=== PATIENT | female | born 1940 | race American Indian/Alaskan Native ===

== ENCOUNTER 2016-12-24 10:48 | Inpatient (IN) | payer MEDICARE ==
[2016-12-24] MEDS ORDERED: NACL 0.9% 1000 ML IV ONE ×2 (13:02→14:37)
--- NOTE | 2016-12-24 13:39 | Emergency Department Report ---
HPI - General Chief Complaint: Extremity Injury, Lower Time Seen by Provider: 12/24/16 12:59 - HPI HPI: Chief complaint: Right ankle injury HPI: Patient is a 76-year-old female with a history of insulin-dependent diabetes, elevated cholesterol, hypertension states that she twisted her ankle walking in her home. Patient states she takes 45 units of Lantus twice a day and has not had her dose this morning he can she did not eat breakfast. Mode of arrival: [EMS] Source: [Patient] Began: Occurred yesterday morning Duration: Continuous Context: Per EMS patient had obvious deformity to her right ankle. Quality: Dull and throbbing Severity: 4 out of 10 Improved with: Holding still and splinting Worsened with: Movement Associated signs and symptoms: Patient unable to bear any weight on that right ankle. Swelling and deformity. ED Past Medical Hx - Past Medical History Hx Hypertension: Yes Hx Diabetes: Yes - Social History Smoking Status: Former Smoker Substance Use Type: None - Medications Home Medications: Home Medications Medication Instructions Recorded Confirmed Last Taken Type Acetaminophen/Diphenhydramine 500 each PO Q6HR 08/07/15 08/09/15 08/09/15 History [Tylenol Pm Ex-Strength Caplet] Aspirin [Adult Low Dose Aspirin EC] 81 mg PO QDAY 08/07/15 08/09/15 08/09/15 History Atorvastatin Calcium [Lipitor] 40 mg PO QHS 08/07/15 08/09/15 08/09/15 History Carvedilol [Coreg] 25 mg PO BID 08/07/15 08/09/15 08/09/15 History Furosemide [Lasix TAB] 20 mg PO QDAY 08/07/15 08/09/15 08/09/15 History amLODIPine [Norvasc] 10 mg PO DAILY 08/07/15 08/09/15 08/09/15 History glipiZIDE [Glucotrol] 10 mg PO BID 08/07/15 08/09/15 08/09/15 History Benzonatate [Tessalon Perles] 100 mg PO Q8HR #30 capsule 08/08/15 08/09/1508/09 Rx Levofloxacin [Levaquin TAB] 750 mg PO QDAY #10 tablet 08/08/15 08/09/15 Rx Insulin NPH Hum/Reg Insulin Hm 45 units BID 08/10/15 08/10/15 3 Days Ago History [HumuLIN 70-30 Vial] ED Review of Systems ROS: Stated complaint: RT ANKLE INJURY Other details as noted in HPI ROS Constitutional: No fever ENT: No uri symptoms Cardiovascular: No chest pain Respiratory: No sob or cough GI: No nausea vomiting or diarrhea : No dysuria frequency or urgency, Skin: No rash Neuro: No focal weakness or numbness Psych: No depression Karlo/lymph: edema Physical Exam - Physical Exam Vital Signs: Vital Signs 12/24/16 12:03 Temperature 99 F Pulse Rate 124 H Respiratory 18 Rate Blood Pressure 136/68 [Right] O2 Sat by Pulse 97 Oximetry Physical Exam: GENERAL: The patient is well-developed well-nourished . HEENT: Normocephalic. Atraumatic. Extraocular motions are intact. Patient has dry mucous membranes. NECK: Supple. No meningitic signs are noted. There is no adenopathy noted. CHEST/LUNGS: Clear to auscultation. There is no respiratory distress noted. HEART/CARDIOVASCULAR: Regular. There is no tachycardia. There is no gallop rub or murmur. ABDOMEN: Abdomen is soft, nontender. Patient has normal bowel sounds. There is no abdominal distention. SKIN: There is no rash. There is 1+ bilateral pedal edema. There is no diaphoresis. NEURO: The patient is awake, alert, and oriented. The patient is cooperative. The patient has no focal neurologic deficits. The patient has normal speech. MUSCULOSKELETAL: Right ankle splinted by EMS. There is no limitation range of motion. ED Course Vital Signs 12/24/16 12:03 Temperature 99 F Pulse Rate 124 H Respiratory 18 Rate Blood Pressure 136/68 [Right] O2 Sat by Pulse 97 Oximetry - Reevaluation(s) Reevaluation #1: 12/24/16 13:41 Patient's Accu-Chek was greater than 500 therefore a liter of normal saline was begun. Patient will have a splint placed to her right ankle. 12/24/16 14:[address] Tracy who will consult on the patient's fractured ankle. ED Medical Decision Making - Lab Data Result diagrams: 12/24/16 13:22 12/24/16 13:22 Laboratory Tests 12/24/16 12/24/16 12/24/16 13:22 13:22 13:40 VBG pH 7.317 L Calcium 9.4 Urine Ketones 80 Urine Blood Mod Ur Leukocyte Esterase Tr Urine WBC (Auto) 14.0 H Urine RBC (Auto) 7.0 U Epithel Cells (Auto) 1.0 Ketones 74.4 H - EKG Data -: EKG Interpreted by Me EKG shows normal: sinus rhythm Rate: tachycardia (119) - EKG Data When compared to previous EKG there are: previous EKG unavailable Interpretation: nonspecific ST-T wave mone, other (sinus tachycardia) - Radiology Data interpreted by me: Right ankle x-ray shows malleolar ankle fracture with minimal displacement. Unstable ankle mortise. Critical care attestation.: If time is entered above; I have spent that time in minutes in the direct care of this critically ill patient, excluding procedure time. ED Disposition Clinical Impression: Bimalleolar fracture of right ankle Qualifiers: Encounter type: initial encounter Fracture type: closed Qualified Code(s): S82.841A - Displaced bimalleolar fracture of right lower leg, initial encounter for closed fracture DKA (diabetic ketoacidoses) Qualifiers: Diabetes mellitus complication detail: without coma Disposition: OP ADMITTED IP TO THIS HOSP Is pt being admited?: Yes Does the pt Need Aspirin: Yes Condition: Stable Instructions: Diabetic Ketoacidosis (ED) Referrals: PRIMARY CARE, [Primary Care Provider] - 3-5 Days Time of Disposition: 14:23 (admit to the hospitalist)
[2016-12-24 13:49] LABS: Basophils % (Auto) 0.5 % (0.0-1.8); Eosinophils % (Auto) 0.1 % (0.0-4.3); Hemoglobin 11.8 gm/dl (10.1-14.3); Mean Corpuscular HGB Conc 32 % (30-34); Mean Corpuscular Hemoglobin 30 pg (28-32); Mean Corpuscular Volume 94 fl (79-97); Platelet Count 362 K/mm3 (140-440); Red Blood Count 3.95 M/mm3 (3.65-5.03); Red Cell Distribution Width 14.2 % (13.2-15.2); White Blood Count 11.1 K/mm3 (4.5-11.0)
[2016-12-24 13:50] LABS: Bilirubin,Urine NEG (Negative); Blood,Urine MOD (Negative); Ketones,Urine 80 mg/dL (Negative); Leukocyte Esterase,Urine TR (Negative); Mucus,Urine FEW /HPF; Nitrite,Urine NEG (Negative); Urobilinogen,Urine < 2.0 mg/dL (<2.0)
[2016-12-24 13:55] LABS: BUN/Creatinine Ratio 13.63; Calcium 9.4 mg/dL (8.4-10.2); Potassium 4.6 mmol/L (3.6-5.0)
--- NOTE | 2016-12-24 14:04 | XRay Report ---
PORTABLE CHEST INDICATION: Shortness of breath. COMPARISON: 08/07/2015 FINDINGS: Portable, frontal chest radiograph demonstrates interval clearing of basilar atelectasis. Slight right midlung zone scarring or faint calcifications appear stable. No pleural effusions or CHF. Normal cardiomediastinal silhouette. Aortic knob calcifications. EKG leads. Stable bones. CONCLUSION: No acute disease in the chest, as described. Thank you for the opportunity to participate in this patient's care.
--- NOTE | 2016-12-24 14:12 | XRay Report ---
RIGHT ANKLE RADIOGRAPHS INDICATION: Right ankle pain, swelling. COMPARISON: None similar. FINDINGS: AP and lateral right ankle radiographs demonstrate disruption of ankle mortise with distal tibia subluxed medially by approximately 2.4 cm, relative to the talus. Horizontal medial malleolus fracture displaced by approximately 1.3 cm noted, though the fractured 1.6 cm medial malleolus fragment positioned appropriately medial to the talus. Talar tilt noted. An oblique distal fibular fracture with cortical offset of approximately 1.3 cm seen. Mild overlying soft tissue swelling laterally and anteriorly noted. Approximately 8 mm faint ossification at the ankle joint anteriorly also seen on the lateral view. Small dorsal and plantar calcaneal spurs. Slight dorsal midfoot spurring. CONCLUSION: Unstable right ankle fractures involving the medial malleolus and the distal fibula with disruption of the ankle mortise, as detailed above. Thank you for the opportunity to participate in this patient's care.
[2016-12-24 14:15] LABS: B-Hydroxybutyrate 74.4 mg/dL (0.2-2.8)
[2016-12-24] MEDS ORDERED: ASPIRIN PO ONE (14:23)
[2016-12-24 15:15] LABS: Magnesium 1.7 mg/dL (1.7-2.3); Phosphorous 2.4 mg/dL (2.5-4.5)
--- NOTE | 2016-12-24 15:37 | Admit Criteria Form ---
Admission Criteria Documentation: DIABETES Clinical Indications for Admission to Inpatient Care (Place 'X' for any and all applicable criteria): Admission is indicated by presence of ALL (if I & II) or ANY ONE (if III or IV) of the following (1)(2)(3)(4): [X ]I. Diabetes is uncontrolled as indicated by ANY ONE of the following: [X ]a) Diabetic ketoacidosis as indicated by ALL of the following (8): [X ]i) Hyperglycemia (eg, plasma glucose greater than 200 mg /dL (11.1 mmol/L)) [X ]ii) Acidosis (eg, arterial pH less than 7.30, serum bicarbonate level less than 15 mEq/L (mmol/L)) [X ]iii) Moderate ketonuria or ketonemia [ ]b) Hyperglycemic hyperosmolar state as indicated by ALL of the following(9)(10): [ ]i) Neurologic dysfunction (eg, stupor, coma, hemiparesis , seizure)(13) [ ]ii) Plasma glucose greater than 600 mg/dL (33.3 mmol/L) [ ]iii) Serum osmolality greater than 320 mOsm/kg (mmol/kg) [ ]c) Severe signs or symptoms secondary to hyperglycemia indicated by ANY ONE of the following: [ ]i) Altered mental status(10) [ ]ii) Significant hypovolemia or dehydration [ ]iii) Intractable nausea or vomiting [ ]iv) Unexplained fever or severe infection [ ]v) Severe electrolyte abnormality (eg, hypokalemia, hyperkalemia, hypernatremia) [X ]II. Management at other levels of care (Also use Diabetes: Observation Care as appropriate) is not feasible because of ANY ONE of the following: [X ]a) Condition was not adequately corrected with treatment at other levels of care. [ ]b) Treatment at other levels of care is not appropriate because of condition severity (eg, hyperosmolar coma). [ ]III. Contraindications and/or Inappropriate clinical situations for Observational Care in patients with Diabetes, when ANY ONE of the following is required: [ ]a) Patient require specific diagnostic workup or therapeutic intervention 22 [ ]b) Patient with abnormal vital signs or altered mental status 23 [X ]IV. General contraindications and/or Inappropriate clinical situations for Observational Care in patients with Diabetes, when ANY ONE of the following is required: [X ]a) Prediction of prolongation of LOS based on ANY ONE of the following may be considered as a contraindication for observational care 2, 3, 4, 5, 6, 7, 8, 9, 10, 11 [ X]i) Age > 65 yrs. [ ]ii) Patient arriving by ambulance [ ]iii) Patient with high acuity [ ]iv) Patient requiring vital sign monitoring [ ]v) Patient on IV medication [ ]b) Systolic blood pressures 180mmHg 3,12 [ ]c) Patient with altered mental status including delirium and other alteration of consciousness, (3) [ ]d) Patient whose discharge disposition will be to a assisted home or rehabilitation home should not be managed in Emergency Department Observation Unit. CMS rule requires 3 days hospital stay before such placement.3,13 [ ]e) Patient with failure to thrive due to broad array of etiologies 3,16,17 [ ]f) Inability to ambulate 3,14 Extended stay beyond goal length of stay may be needed for(3)(20): [ ]a) Treatment of precipitating causes [ ]b) Development of hypoglycemia [ ]c) Complications of treatment [ ]d) Complications of decompensated diabetes (eg, acute gastric dilatation, persistent metabolic or neurologic derangement) [ ]e) Active Comorbidities [ ]f) Older patients( 65 years or older) The original [facility] content created by [employer] has been revised. The portions of the content which have been revised are identified through the use of italic text or in bold,and [facility] has neither reviewed nor approved the modified material. All other unmodified content is copyright [facility]. Please see references footnoted in the original [facility] edition 2016 Admission Criteria Met: Yes
[2016-12-24 15:43] LABS: Anion Gap 32 mmol/L; Blood Urea Nitrogen 14 mg/dL (7-17); Carbon Dioxide 17 mmol/L (22-30); Chloride 90.4 mmol/L (98-107); Glucose 433 mg/dL (65-100); Potassium 3.9 mmol/L (3.6-5.0); Sodium 135 mmol/L (137-145)
[2016-12-24] MEDS: NovoLIN R 100 UNITS in NACL 0.9% 99 ML IV SCH (15:47)
[2016-12-24 16:47] LABS: Anion Gap 26 mmol/L; BUN/Creatinine Ratio 15.55; Blood Urea Nitrogen 14 mg/dL (7-17); Calcium 8.5 mg/dL (8.4-10.2); Carbon Dioxide 19 mmol/L (22-30); Chloride 96.5 mmol/L (98-107); Glucose 287 mg/dL (65-100); Potassium 3.5 mmol/L (3.6-5.0); Sodium 138 mmol/L (137-145)
[2016-12-24] MEDS ORDERED: D5/0.45NS 1,000 ML IV SCH (18:00)
[2016-12-24 18:45] LABS: Anion Gap 22 mmol/L; BUN/Creatinine Ratio 14.44; Blood Urea Nitrogen 13 mg/dL (7-17); Calcium 8.6 mg/dL (8.4-10.2); Carbon Dioxide 22 mmol/L (22-30); Chloride 98.7 mmol/L (98-107); Glucose 203 mg/dL (65-100); Potassium 3.5 mmol/L (3.6-5.0); Sodium 139 mmol/L (137-145)
[2016-12-24 20:48] LABS: Anion Gap 23 mmol/L; Blood Urea Nitrogen 12 mg/dL (7-17); Carbon Dioxide 22 mmol/L (22-30); Chloride 98.3 mmol/L (98-107); Glucose 203 mg/dL (65-100); Potassium 3.5 mmol/L (3.6-5.0); Sodium 140 mmol/L (137-145)
--- NOTE | 2016-12-24 22:39 | Event Note ---
Date: 12/24/16 See H/p in reports Bimalleolar fracture DKA HTN HLD
[2016-12-24] MEDS ORDERED: MILK OF MAGNESIA PO PRN (22:41)
[2016-12-24] MEDS ORDERED: DILAUDID IV PRN (22:41)
[2016-12-24] MEDS ORDERED: ZOFRAN IV PRN (22:41)
[2016-12-24] MEDS ORDERED: AMBIEN PO PRN (22:41)
[2016-12-24] MEDS ORDERED: DULCOLAX PR PRN (22:41)
[2016-12-24 22:46] LABS: Anion Gap 23 mmol/L; BUN/Creatinine Ratio 13.75; Blood Urea Nitrogen 11 mg/dL (7-17); Calcium 8.5 mg/dL (8.4-10.2); Carbon Dioxide 20 mmol/L (22-30); Chloride 96.1 mmol/L (98-107); Glucose 232 mg/dL (65-100); Potassium 3.3 mmol/L (3.6-5.0); Sodium 136 mmol/L (137-145)
[2016-12-25] MEDS: COREG PO SCH ×3 (00:21→21:45)
[2016-12-25] MEDS: NOVOLOG SUB-Q SCH ×6 (00:22→23:53)
[2016-12-25] MEDS ORDERED: D5W/0.45% NACL/KCL 20 MEQ 20 MEQ/1,000 ML BAG IV ONE (01:59)
[2016-12-25] MEDS ORDERED: D5W/0.45% NACL/KCL 20 MEQ 20 MEQ/1,000 ML BAG IV SCH (03:00)
[2016-12-25] MEDS: NovoLIN R 100 UNITS in NACL 0.9% 99 ML IV SCH (05:20)
[2016-12-25] MEDS: TYLENOL PO PRN ×2 (06:31→23:50)
[2016-12-25 07:32] LABS: BUN/Creatinine Ratio 10.9; Calcium 8.3 mg/dL (8.4-10.2); Chloride 102.7 mmol/L (98-107); Potassium 3.7 mmol/L (3.6-5.0)
[2016-12-25] MEDS ORDERED: NACL 0.9% 1000 ML 1,000 ML ONE (08:52)
[2016-12-25] MEDS ORDERED: NACL 0.9% 1000 ML 2,000 ML IV ONE (09:17)
[2016-12-25] MEDS: NORVASC PO SCH (10:02)
[2016-12-25] MEDS: LASIX PO SCH (10:02)
--- NOTE | 2016-12-25 10:06 | History and Physical Report ---
CHIEF COMPLAINT: Right ankle injury and right ankle pain since yesterday. HISTORY OF PRESENT ILLNESS: A 76-year-old female with history of insulin-dependent diabetes, hyperlipidemia, hypertension, twisted her ankle yesterday at her home and since then she has been having severe pain in the right ankle. Unable to walk. Seeks medical attention after 16 hours. Also, stopped taking insulin yesterday. Did not take her morning dose because she did not eat breakfast. Pain is about 10 on a scale of 1-10. Twisted her ankle and resulted in severe pain and immobility. No shortness of breath. No chest pain. No wheezing. PAST MEDICAL HISTORY: Significant for hypertension, diabetes, hyperlipidemia. CURRENT MEDICATIONS: Glipizide 10 mg p.o. b.i.d., amlodipine 10 mg p.o. daily, insulin 70/30, 45 units twice a day, Lasix 20 mg p.o. once a day, Coreg 25 mg twice a day, atorvastatin 40 mg p.o. at bedtime, aspirin 81 mg p.o. daily. PAST SURGICAL HISTORY: None. SOCIAL HISTORY: Former smoker, does not smoke now. Lives with family. FAMILY HISTORY: Hypertension. REVIEW OF SYSTEMS: CONSTITUTIONAL: No fever. No weight loss, weight gain. HEENT: No sore throat, no postnasal drip. CARDIOVASCULAR AND RESPIRATORY: No shortness of breath, no chest pain, no palpitation, no cough, no sputum. GASTROINTESTINAL: No nausea, no vomiting, no diarrhea. GENITOURINARY: No dysuria, no flank pain. SKIN: No rashes. CENTRAL NERVOUS SYSTEM: No syncope, no seizures. MUSCULOSKELETAL: Has severe right ankle pain, 10/10, unable to walk. HEMATOLOGIC AND LYMPHATIC: No bruising or edema. PSYCHIATRIC: No depression, no suicidal ideation. A 14-point review of system was done. PHYSICAL EXAMINATION: GENERAL: Elderly female lying in bed, in slight distress because of the pain. VITAL SIGNS: Temperature is 99, pulse is 124, respiratory rate is 18, blood pressure is . HEENT: Unremarkable. Pupils equal and reactive. NECK: Supple, no lymphadenopathy, no thyromegaly. LUNGS: Clear to auscultation and percussion. Good air entry. CARDIOVASCULAR: S1, S2 heard. No gallop, no murmur, no rub. Apical impulse in left fifth intercostal space and midclavicular line. ABDOMEN: Soft and benign. No hepatosplenomegaly. No guarding, no rigidity. Hernial orifices are normal. EXTREMITIES: Right ankle swollen, 0 range of motion in the ankle. Right ankle deformed. CENTRAL NERVOUS SYSTEM: Alert and oriented x 4, nonfocal exam. SKIN: Normal. IMAGING STUDIES: X-ray of the right ankle shows unstable right ankle fractures involving the medial malleolus and the distal fibula with disruption of the ankle mortise, consistent with bimalleolar fracture, soft tissue swelling in the right ankle. Chest x-ray, no acute process. LABORATORY DATA: White count is 11,100, H and H is 11.8 and 37.0, platelet count is 362,000. Sodium is 136, potassium is 3.3, BUN and creatinine is 11 and 0.8, glucose is 232, repeat is 248, 211, 156, and 147. Ketones are positive. The initial glucose was 546, BUN and creatinine was 15 and 1.1. Ketones were positive. Ketones were 74.4. PH on venous blood gas was . ASSESSMENT AND PLAN: 1. Diabetic ketoacidosis, mild to moderate. The patient initiated on insulin drip and DKA protocol. In view of surgery, DKA protocol had to be initiated. 2. Right ankle fracture. The patient will be taken to surgery tomorrow, which is 12/25/2016, Dr. Tracy consulted. 3. Pain management. Dilaudid 0.5-1 mg q. 3 p.r.n. 4. Insulin-dependent diabetes. The patient does not need any oral hypoglycemics right now or even at discharge. It is superflow to give oral hypoglycemics when she is getting insulin. The patient is getting insulin 70/30, 45 units twice a day. We will discontinue the oral hypoglycemics. The patient also to be counseled. 5. Hypertension. Continue amlodipine 10 mg daily and Coreg 25 mg twice a day. 6. Hyperlipidemia. Continue atorvastatin 40 mg p.o. daily. 7. Deep venous thrombosis prophylaxis, Lovenox 40 mg subcutaneous daily. CRITICAL CARE STATEMENT: The high probability of a clinically significant sudden or deterioration of the cardiopulmonary systems and endocrine system required my full and direct attention, intervention, and personal management. The aggregate critical care time was 40 minutes. The time is in addition to time spent performing reported procedures, but includes the following: Data review and interpretation, patient assessment and monitoring of vital signs, documentation, medication orders, and management. JOB# [id number] KOFI/DANN
--- NOTE | 2016-12-25 15:04 | Consultation ---
History of Present Illness - HPI Consult date: 12/25/16 Consult reason: fracture History of present illness: 76-year-old, fell down and twisted the ankle with injury. Unable to walk and was seen in the ER. Admitted with diagnosis of bimalleolar fracture. Past History Past Medical History: diabetes, hypertension Medications and Allergies Allergies Allergy/AdvReac Type Severity Reaction Status Date / Time shellfish derived Allergy Anaphylaxis Verified 08/07/15 23:19 Sulfa (Sulfonamide Allergy Anaphylaxis Verified 08/07/15 23:19 Antibiotics) Home Medications Medication Instructions Recorded Confirmed Last Taken Type Aspirin [Adult Low Dose Aspirin EC] 81 mg PO QDAY 08/07/15 12/24/16 08/09/15 History Atorvastatin Calcium [Lipitor] 40 mg PO QHS 08/07/15 12/24/16 08/09/15 History Carvedilol [Coreg] 25 mg PO BID 08/07/15 12/24/16 08/09/15 History Furosemide [Lasix TAB] 20 mg PO QDAY 08/07/15 12/24/16 08/09/15 History amLODIPine [Norvasc] 10 mg PO DAILY 08/07/15 12/24/16 08/09/15 History glipiZIDE [Glucotrol] 10 mg PO BID 08/07/15 12/24/16 08/09/15 History Insulin NPH Hum/Reg Insulin Hm 45 units BID 08/10/15 12/24/16 3 Days Ago History [HumuLIN 70-30 Vial] Active Meds: Active Medications Acetaminophen (Tylenol) 650 mg PO Q4H PRN PRN Reason: Pain MILD(1-3)/Fever >100.5/HAMMER Last Admin: 12/25/16 06:31 Dose: 650 mg Amlodipine Besylate (Norvasc) 10 mg PO DAILY [facility] Last Admin: 12/25/16 10:02 Dose: Not Given Aspirin (Halfprin Ec) 81 mg PO QDAY BELA Atorvastatin Calcium (Lipitor) 40 mg PO QHS BELA Bisacodyl (Dulcolax) 10 mg MN QDAY PRN PRN Reason: Constipation unrelieved by MOM Carvedilol (Coreg) 25 mg PO BID [facility] Last Admin: 12/25/16 10:02 Dose: Not Given Dextrose (D50w (25gm)) 0 ml IV ONCE PRN PRN Reason: Hypoglycemia Furosemide (Lasix) 20 mg PO QDAY [facility] Last Admin: 12/25/16 10:02 Dose: Not Given Hydromorphone HCl (Dilaudid) 1 mg IV Q3H PRN PRN Reason: Pain , Severe (7-10) Potassium Chloride/Dextrose/Sod Cl (D5w/0.45% Nacl/Kcl 20 Meq) 20 meq in 1,000 mls @ 150 mls/hr IV DIRECT [facility] Last Admin: 12/25/16 03:00 Dose: 150 mls/hr Insulin Aspart (Novolog) 0 units SUB-Q Q6HR BELA PRN Reason: Protocol Last Admin: 12/25/16 12:59 Dose: 3 units Insulin Human Isoph/Insulin Regular (Novolin 70/30) 45 unit SUB-Q BIDDIAB [facility] Last Admin: 12/25/16 09:58 Dose: 45 unit Magnesium Hydroxide (Milk Of Magnesia) 30 ml PO Q4H PRN PRN Reason: Constipation Ondansetron HCl (Zofran) 4 mg IV Q8H PRN PRN Reason: N/V unrelieved by Reglan Zolpidem Tartrate (Ambien) 5 mg PO QHS PRN PRN Reason: Insomnia Review of Systems All systems: negative Physical Examination - Ankle & Foot right Ankle appearance: normal Foot swelling: other (Her right ankle in splint, no neurovascular deficit.) Assessment and Plan - Patient Problems (1) Bimalleolar fracture of right ankle Current Visit: Yes Status: Acute Qualifiers: Encounter type: initial encounter Fracture type: closed Open fracture type: O Fracture healing: F Qualified Code(s): S82.841A - Displaced bimalleolar fracture of right lower leg, initial encounter for closed fracture Plan to address problem: Elevation, control swelling. Will need internal fixation. Procedure, complications expected outcome discussed with. We'll schedule her pending medical status. She agreed with this.
[2016-12-25] MEDS ORDERED: ANCEF/STERILE WATER 2 GM/20 ML IV NR (16:00)
--- NOTE | 2016-12-25 16:03 | Anesthesia Consultation ---
Anesthesia Consult and Med Hx Date of service: 12/26/16 - Airway Anesthetic Teeth Evaluation: Dentures, Partials ROM Head & Neck: Adequate Mental/Hyoid Distance: Adequate Mallampati Class: Class II Intubation Access Assessment: Probably Good - Pre-Operative Health Status ASA Pre-Surgery Classification: ASA3 Proposed Anesthetic Plan: General - Cardiovascular System Hx Hypertension: Yes - Endocrine Hx Insulin Dependent Diabetes: Yes - Additional Comments Anesthesia Medical History Comments: No previous anesthesia complications.
[2016-12-25 16:16] LABS: Anion Gap 20 mmol/L; Blood Urea Nitrogen 14 mg/dL (7-17); Calcium 8.3 mg/dL (8.4-10.2); Carbon Dioxide 22 mmol/L (22-30); Glucose 195 mg/dL (65-100); Potassium 3.4 mmol/L (3.6-5.0); Sodium 140 mmol/L (137-145)
[2016-12-25] MEDS: HALFPRIN EC PO SCH (21:34)
[2016-12-25] MEDS: NACL 0.9% 1000 ML 1,000 ML IV SCH (23:51)
[2016-12-26] MEDS ORDERED: VERSED IV PRN (00:01)
[2016-12-26] MEDS: NOVOLOG SUB-Q SCH ×4 (06:41→22:59)
[2016-12-26] MEDS: LASIX PO SCH (10:00)
[2016-12-26] MEDS: NORVASC PO SCH (10:00)
[2016-12-26] MEDS: HALFPRIN EC PO SCH (10:00)
[2016-12-26] MEDS: COREG PO SCH ×2 (12:27→22:58)
[2016-12-26] MEDS: NACL 0.9% 1000 ML 1,000 ML IV SCH ×2 (12:28→23:08)
[2016-12-26] MEDS ORDERED: ANCEF/STERILE WATER 2 GM/20 ML IV NR (14:00)
[2016-12-26] MEDS ORDERED: DILAUDID IV PRN (14:41)
[2016-12-26] MEDS ORDERED: PEPCID ONE (15:18)
[2016-12-26] MEDS ORDERED: MARCAINE-EPI 0.5%-1:200,000 INFILTRATI ONE (15:19)
[2016-12-26] MEDS ORDERED: DECADRON ONE ×2 (15:19→16:57)
[2016-12-26] MEDS: NEURONTIN ONE ×2 (15:23→23:03)
[2016-12-26] MEDS ORDERED: NEURONTIN PO NR (15:25)
[2016-12-26] MEDS ORDERED: PEPCID PO NR (15:25)
[2016-12-26] MEDS ORDERED: DIPRIVAN 10 MG/ML IV ONE (16:56)
[2016-12-26] MEDS ORDERED: DILAUDID ONE (16:56)
[2016-12-26] MEDS ORDERED: ZOFRAN ONE (16:57)
[2016-12-26] MEDS ORDERED: XYLOCAINE MPF 2% ONE (16:57)
[2016-12-26] MEDS ORDERED: ZEMURON IV ONE (16:57)
[2016-12-26] MEDS ORDERED: NACL 0.9% ONE (17:10)
[2016-12-26] MEDS ORDERED: NACL 0.9% IR ONE (17:30)
[2016-12-26] MEDS ORDERED: NEOSPORIN GU IR ONE (17:30)
[2016-12-26] MEDS ORDERED: ePHEDrine SULFATE ONE (17:50)
[2016-12-26] MEDS ORDERED: NEO SYNEPHRINE ONE (17:52)
--- NOTE | 2016-12-26 18:10 | Procedure Note ---
Date of procedure: 12/26/16 Pre-op diagnosis: Bimalleolar fx right ankle Post-op diagnosis: same Procedure: ORIF right Bimalleolar ankle FX Anesthesia: GETA Surgeon: RAI DOUGLAS Estimated blood loss: minimal Pathology: none Condition: stable Disposition: PACU
--- NOTE | 2016-12-26 18:14 | Post Anesthesia Evaluation ---
- Post Anesthesia Evaluation Patient Participated: Yes Airway Patent: Yes Stable Respiratory Function: Yes Nausea/Vomiting: No Temp > 96.8F: Yes Pain Manageable: Yes Adequeate Hydration: Yes Anesthesia Complications: No
[2016-12-26] MEDS ORDERED: PHENERGAN PR PRN (20:29)
[2016-12-26] MEDS ORDERED: SODIUM CHLORIDE FLUSH SYRINGE 10 ML IV SCH (20:29)
[2016-12-26] MEDS ORDERED: MORPHINE IV PRN (20:29)
[2016-12-26] MEDS: ANCEF/NS 1 GM/50 ML 1 GM/50 ML BAG IV SCH (22:55)
--- NOTE | 2016-12-26 22:56 | Operative Report ---
PREOPERATIVE DIAGNOSIS: Unstable bimalleolar fracture, right ankle. POSTOPERATIVE DIAGNOSIS: Unstable bimalleolar fracture, right ankle. OPERATIVE PROCEDURE: Open reduction and internal fixation, bimalleolar fracture, right ankle, Synthes instrumentation. SURGEON: Marjorie Fuller MD NATURALIST: Pattie Shay CSA. ANESTHESIA: General. BLOOD LOSS: Minimal. TOURNIQUET TIME: 40 minutes. PROCEDURE IN DETAIL: The patient was taken to surgery suite, satisfactory analgesia obtained with general anesthetics. Right lower limb prepped with ChloraPrep, satisfactorily draped. The correct patient, procedure, and surgical sites were confirmed. After exsanguinating, tourniquet inflated to 300 mmHg pressure. Anterior medial incision was made over the medial malleolus, deepened to the thickness of skin and subcutaneous. Fracture was visualized and the periosteum was elevated, and the soft tissue interposed the fracture site was extracted. Fracture was reduced and held in the reduced position using a reduction clamp. Using the 2.4 mm drillbit 2 drill holes were then made from the tip of the malleolus into the metaphysis of the distal tibia and 4.0 cancellous screw size 40 mm length with washers were applied and 2 set screws were used. Screw position was confirmed under fluoroscopy and confirmed that it does not enter into the ankle mortise. Posterolateral incision was made centering over the fracture site of the fibula. Incision was deepened, periosteum was incised and the fracture was visualized with mild comminution. An 8-hole 1/3 tubular plate was prebent, applied posterolaterally over to the fibula, held in place and the plate position confirmed with fluoroscopy. Through the distal fragment, drill holes were then made with 2.04 mm drill bit and 4.0 cancellous screws were applied. Care taken to avoid penetration into the joint space. The remaining screw holes were then completed in a similar fashion and AP and lateral fluoroscopy showing satisfactory reduction with anatomical alignment and application of internal fixation. Ankle mortise appeared intact. Under fluoroscopy, the syndesmosis was then evaluated and appeared stable. Wound was then thoroughly irrigated, closed in layers in the standard fashion using 2-0 Vicryl and tianna. Sterile dressings were applied. Ankle was immobilized in a posterior splint in neutral position, transferred to recovery room in satisfactory condition, tolerated the procedure well and at the completion of procedure, counts were accurate. TOTAL BLOOD LOSS: Minimal. TOTAL TOURNIQUET TIME: Approximately 40 minutes. [facility]# [id number] ADAN/DANN EVANS
[2016-12-26] MEDS: COLACE PO SCH (22:57)
[2016-12-26] MEDS: ASPIRIN PO SCH (22:58)
--- NOTE | 2016-12-27 04:41 | Progress Note ---
Assessment and Plan - Patient Problems (1) DKA (diabetic ketoacidoses) Current Visit: Yes Status: Resolved Qualifiers: Diabetes mellitus type: D Diabetes mellitus complication detail: without coma Plan to address problem: ADA diet, insulin, accu check (2) Bimalleolar fracture of right ankle Current Visit: Yes Status: Acute Qualifiers: Encounter type: initial encounter Fracture type: closed Open fracture type: O Fracture healing: F Qualified Code(s): S82.841A - Displaced bimalleolar fracture of right lower leg, initial encounter for closed fracture Plan to address problem: Ortho consulted, pending surgical intervention (3) COPD (chronic obstructive pulmonary disease) Current Visit: No Status: Chronic Qualifiers: COPD type: C Chronic bronchitis type: C Emphysema type: E Plan to address problem: supplemental oxygen, nebs, supportive care. (4) Hyperlipidemia Current Visit: No Status: Chronic Qualifiers: Hyperlipidemia type: H Plan to address problem: continue current therapy (5) Hypertension Current Visit: No Status: Chronic Qualifiers: Hypertension type: essential hypertension Qualified Code(s): I10 - Essential (primary) hypertension Plan to address problem: Monitor BP q shift, (6) DVT prophylaxis Current Visit: Yes Status: Acute History Interval history: Pt resting in bed, No reported nursing events. Pending surgical intervention today. Pt denies fever, CP,Palpitation, NVD. Hospitalist Physical - Constitutional Vitals: Temp Pulse Resp BP Pulse Ox 97.5 F L 80 18 142/82 99 12/26/16 23:30 12/26/16 23:30 12/26/16 23:30 12/26/16 23:30 12/26/16 23:30 General appearance: Present: no acute distress, obese - EENT Eyes: Present: PERRL ENT: hearing intact - Neck Neck: Present: supple - Respiratory Respiratory effort: normal Respiratory: bilateral: CTA - Cardiovascular Rhythm: regular Heart Sounds: Present: S1 & S2 - Extremities Extremities: no ischemia Peripheral Pulses: within normal limits - Abdominal General gastrointestinal: soft, non-tender, non-distended - Integumentary Integumentary: Present: clear, dry - Psychiatric Psychiatric: appropriate mood/affect, cooperative - Neurologic Neurologic: CNII-XII intact Results - Labs CBC & Chem 7: 12/24/16 13:22 12/25/16 15:41 Labs: Laboratory Last Values WBC 11.1 K/mm3 (4.5-11.0) H 12/24/16 13:22 RBC 3.95 M/mm3 (3.65-5.03) 12/24/16 13:22 Hgb 11.8 gm/dl (10.1-14.3) 12/24/16 13:22 Hct 37.0 % (30.3-42.9) 12/24/16 13:22 MCV 94 fl (79-97) 12/24/16 13:22 MCH 30 pg (28-32) 12/24/16 13:22 MCHC 32 % (30-34) 12/24/16 13:22 RDW 14.2 % (13.2-15.2) 12/24/16 13:22 Plt Count 362 K/mm3 (140-440) 12/24/16 13:22 Lymph % (Auto) 4.4 % (13.4-35.0) L 12/24/16 13:22 [place] % (Auto) 14.1 % (0.0-7.3) H 12/24/16 13:22 Eos % (Auto) 0.1 % (0.0-4.3) 12/24/16 13:22 Baso % (Auto) 0.5 % (0.0-1.8) 12/24/16 13:22 Lymph # 0.5 K/mm3 (1.2-5.4) L 12/24/16 13:22 [place] # 1.6 K/mm3 (0.0-0.8) H 12/24/16 13:22 Eos # 0.0 K/mm3 (0.0-0.4) 12/24/16 13:22 Baso # 0.1 K/mm3 (0.0-0.1) 12/24/16 13:22 Seg Neutrophils % 80.9 % (40.0-70.0) H 12/24/16 13:22 Seg Neutrophils # 9.0 K/mm3 (1.8-7.7) H 12/24/16 13:22 VBG pH 7.317 (7.320-7.420) L 12/24/16 13:22 Sodium 140 mmol/L (137-145) 12/25/16 15:41 Potassium 3.4 mmol/L (3.6-5.0) L 12/25/16 15:41 Chloride 101.0 mmol/L (98-107) 12/25/16 15:41 Carbon Dioxide 22 mmol/L (22-30) 12/25/16 15:41 Anion Gap 20 mmol/L 12/25/16 15:41 BUN 14 mg/dL (7-17) 12/25/16 15:41 Creatinine 1.0 mg/dL (0.7-1.2) 12/25/16 15:41 Estimated GFR > 60 ml/min 12/25/16 15:41 BUN/Creatinine Ratio 14.00 % 12/25/16 15:41 Glucose 195 mg/dL (65-100) H 12/25/16 15:41 POC Glucose 247 (70-105) H 12/26/16 22:54 Calcium 8.3 mg/dL (8.4-10.2) L 12/25/16 15:41 Phosphorus 2.4 mg/dL (2.5-4.5) L 12/24/16 14:44 Magnesium 1.7 mg/dL (1.7-2.3) 12/24/16 14:44 Urine Color Straw (Yellow) 12/24/16 13:40 Urine Turbidity Clear (Clear) 12/24/16 13:40 Urine pH 5.0 (5.0-7.0) 12/24/16 13:40 Ur Specific [place] 1.022 (1.003-1.030) 12/24/16 13:40 Urine Protein 30 mg/dl mg/dL (Negative) 12/24/16 13:40 Urine Glucose (UA) >=500 mg/dL (Negative) 12/24/16 13:40 Urine Ketones 80 mg/dL (Negative) 12/24/16 13:40 Urine Blood Mod (Negative) 12/24/16 13:40 Urine Nitrite Neg (Negative) 12/24/16 13:40 Urine Bilirubin Neg (Negative) 12/24/16 13:40 Urine Urobilinogen < 2.0 mg/dL (<2.0) 12/24/16 13:40 Ur Leukocyte Esterase Tr (Negative) 12/24/16 13:40 Urine WBC (Auto) 14.0 /HPF (0.0-6.0) H 12/24/16 13:40 Urine RBC (Auto) 7.0 /HPF (0.0-6.0) 12/24/16 13:40 U Epithel Cells (Auto) 1.0 /HPF (0-13.0) 12/24/16 13:40 Urine Mucus Few /HPF 12/24/16 13:40 Ketones 74.4 mg/dL (0.2-2.8) H 12/24/16 13:22
[2016-12-27 05:37] LABS: Hematocrit 32.2 % (30.3-42.9); Hemoglobin 10.4 gm/dl (10.1-14.3)
[2016-12-27 05:57] LABS: Anion Gap 20 mmol/L; BUN/Creatinine Ratio 26.25; Blood Urea Nitrogen 21 mg/dL (7-17); Calcium 7.8 mg/dL (8.4-10.2); Carbon Dioxide 21 mmol/L (22-30); Chloride 102.2 mmol/L (98-107); Glucose 416 mg/dL (65-100); Potassium 4.4 mmol/L (3.6-5.0); Sodium 139 mmol/L (137-145)
[2016-12-27] MEDS: ANCEF/NS 1 GM/50 ML 1 GM/50 ML BAG IV SCH (06:20)
--- NOTE | 2016-12-27 07:40 | Progress Note ---
Assessment and Plan alert orientated in NAD toes look good, good capillary refill and motion OOB c PT, May DC as per medicine. Subjective Date of service: 12/27/16 Objective Vital signs: Vital Signs - 12hr 12/26/16 12/26/16 12/26/16 19:45 20:10 20:15 Temperature 98.1 F 98.2 F Pulse Rate 80 Pulse Rate [ 112 H Apical] Pulse Rate [ 80 100 H Left Radial] Respiratory 20 20 20 Rate Respiratory Rate [Right Ankle] Blood Pressure 109/63 Blood Pressure 109/63 124/74 [Left Arm] O2 Sat by Pulse 98 100 100 Oximetry 12/26/16 12/26/16 12/26/16 20:39 20:45 21:15 Temperature 98.6 F 98 F Pulse Rate 85 Pulse Rate [ Apical] Pulse Rate [ 102 H 116 H Left Radial] Respiratory 18 20 Rate Respiratory Rate [Right Ankle] Blood Pressure Blood Pressure 118/70 124/78 [Left Arm] O2 Sat by Pulse 98 98 Oximetry 12/26/16 12/26/16 12/26/16 22:00 22:30 22:58 Temperature 98 F Pulse Rate 81 Pulse Rate [ Apical] Pulse Rate [ 92 H Left Radial] Respiratory 20 Rate Respiratory 22 Rate [Right Ankle] Blood Pressure 142/82 Blood Pressure 116/74 [Left Arm] O2 Sat by Pulse 98 Oximetry 12/26/16 23:30 Temperature 97.5 F L Pulse Rate Pulse Rate [ Apical] Pulse Rate [ 80 Left Radial] Respiratory 18 Rate Respiratory Rate [Right Ankle] Blood Pressure Blood Pressure 142/82 [Left Arm] O2 Sat by Pulse 99 Oximetry - Labs CBC & BMP: 12/27/16 05:24 12/27/16 05:24 Labs: Abnormal lab results 12/26/16 12/26/16 12/26/16 Range/Units 12:42 14:19 18:39 Carbon Dioxide (22-30) mmol/L BUN (7-17) mg/dL Glucose (65-100) mg/dL POC Glucose 151 H 179 H 250 H (70-105) Calcium (8.4-10.2) mg/dL 12/26/16 12/27/16 Range/Units 22:54 05:24 Carbon Dioxide 21 L (22-30) mmol/L BUN 21 H (7-17) mg/dL Glucose 416 H (65-100) mg/dL POC Glucose 247 H (70-105) Calcium 7.8 L (8.4-10.2) mg/dL
[2016-12-27] MEDS: NOVOLOG SUB-Q SCH ×4 (08:32→22:58)
--- NOTE | 2016-12-27 08:52 | XRay Report ---
Right ankle 3 views. Findings: Orthopedic screws are seen transfixing the medial malleolar fracture. An orthopedic side plate and multiple screws are seen transfixing the fractured lateral malleolus. No radiographic signs of complications are seen.
[2016-12-27] MEDS: NORVASC PO SCH (10:08)
[2016-12-27] MEDS: COREG PO SCH ×2 (10:08→22:58)
[2016-12-27] MEDS: THERAGRAN Tab PO SCH (10:08)
[2016-12-27] MEDS: COLACE PO SCH ×2 (10:08→22:57)
[2016-12-27] MEDS: LASIX PO SCH (10:08)
[2016-12-27] MEDS: ASPIRIN PO SCH ×2 (10:08→22:58)
[2016-12-27] MEDS ORDERED: FLUARIX QUAD 2016-2017(36 MOS+) IM ONE (12:00)
--- NOTE | 2016-12-27 16:33 | Progress Note ---
Assessment and Plan - Patient Problems (1) DKA (diabetic ketoacidoses) Current Visit: Yes Status: Resolved Qualifiers: Diabetes mellitus type: D Diabetes mellitus complication detail: without coma Plan to address problem: ADA diet, insulin, accu check (2) Bimalleolar fracture of right ankle Current Visit: Yes Status: Acute Qualifiers: Encounter type: initial encounter Fracture type: closed Open fracture type: O Fracture healing: F Qualified Code(s): S82.841A - Displaced bimalleolar fracture of right lower leg, initial encounter for closed fracture Plan to address problem: Ortho consulted, S/P surgical intervention, Postoperative pain, continue pain control. (3) COPD (chronic obstructive pulmonary disease) Current Visit: No Status: Chronic Qualifiers: COPD type: C Chronic bronchitis type: C Emphysema type: E Plan to address problem: supplemental oxygen, nebs, supportive care. (4) Hyperlipidemia Current Visit: No Status: Chronic Qualifiers: Hyperlipidemia type: H Plan to address problem: continue current therapy (5) Hypertension Current Visit: No Status: Chronic Qualifiers: Hypertension type: essential hypertension Qualified Code(s): I10 - Essential (primary) hypertension Plan to address problem: Monitor BP q shift, (6) DVT prophylaxis Current Visit: Yes Status: Acute History Interval history: Pt resting in bed, No reported nursing events. Pt S/P surgical intervention, Pt complains of pain. Pt denies fever, CP,Palpitation, NVD. Hospitalist Physical - Constitutional Vitals: Temp Pulse Resp BP Pulse Ox 98.1 F 62 18 97/54 94 12/27/16 15:32 12/27/16 15:32 12/27/16 15:32 12/27/16 15:32 12/27/16 15:32 General appearance: Present: no acute distress, obese - EENT Eyes: Present: PERRL, EOM intact ENT: hearing intact - Neck Neck: Present: supple - Respiratory Respiratory effort: normal Respiratory: bilateral: CTA - Cardiovascular Rhythm: regular Heart Sounds: Present: S1 & S2 - Extremities Extremities: no ischemia Extremity abnormal: edema - Abdominal General gastrointestinal: soft, non-tender, non-distended - Integumentary Integumentary: Present: clear, dry - Psychiatric Psychiatric: appropriate mood/affect, cooperative - Neurologic Neurologic: CNII-XII intact Results - Labs CBC & Chem 7: 12/27/16 05:24 03/02/17 05:24 Labs: Laboratory Last Values WBC 11.1 K/mm3 (4.5-11.0) H 12/24/16 13:22 RBC 3.95 M/mm3 (3.65-5.03) 12/24/16 13:22 Hgb 10.4 gm/dl (10.1-14.3) 12/27/16 05:24 Hct 32.2 % (30.3-42.9) 12/27/16 05:24 MCV 94 fl (79-97) 12/24/16 13:22 MCH 30 pg (28-32) 12/24/16 13:22 MCHC 32 % (30-34) 12/24/16 13:22 RDW 14.2 % (13.2-15.2) 12/24/16 13:22 Plt Count 362 K/mm3 (140-440) 12/24/16 13:22 Lymph % (Auto) 4.4 % (13.4-35.0) L 12/24/16 13:22 [place] % (Auto) 14.1 % (0.0-7.3) H 12/24/16 13:22 Eos % (Auto) 0.1 % (0.0-4.3) 12/24/16 13:22 Baso % (Auto) 0.5 % (0.0-1.8) 12/24/16 13:22 Lymph # 0.5 K/mm3 (1.2-5.4) L 12/24/16 13:22 [place] # 1.6 K/mm3 (0.0-0.8) H 12/24/16 13:22 Eos # 0.0 K/mm3 (0.0-0.4) 12/24/16 13:22 Baso # 0.1 K/mm3 (0.0-0.1) 12/24/16 13:22 Seg Neutrophils % 80.9 % (40.0-70.0) H 12/24/16 13:22 Seg Neutrophils # 9.0 K/mm3 (1.8-7.7) H 12/24/16 13:22 VBG pH 7.317 (7.320-7.420) L 12/24/16 13:22 Sodium 139 mmol/L (137-145) 12/27/16 05:24 Potassium 4.4 mmol/L (3.6-5.0) D 12/27/16 05:24 Chloride 102.2 mmol/L (98-107) 12/27/16 05:24 Carbon Dioxide 21 mmol/L (22-30) L 12/27/16 05:24 Anion Gap 20 mmol/L 12/27/16 05:24 BUN 21 mg/dL (7-17) H 12/27/16 05:24 Creatinine 0.8 mg/dL (0.7-1.2) 12/27/16 05:24 Estimated GFR > 60 ml/min 12/27/16 05:24 BUN/Creatinine Ratio 26.25 % 12/27/16 05:24 Glucose 416 mg/dL (65-100) H 12/27/16 05:24 POC Glucose 409 (70-105) H 12/27/16 12:07 Calcium 7.8 mg/dL (8.4-10.2) L 12/27/16 05:24 Phosphorus 2.4 mg/dL (2.5-4.5) L 12/24/16 14:44 Magnesium 1.7 mg/dL (1.7-2.3) 12/24/16 14:44 Urine Color Straw (Yellow) 12/24/16 13:40 Urine Turbidity Clear (Clear) 12/24/16 13:40 Urine pH 5.0 (5.0-7.0) 12/24/16 13:40 Ur Specific [place] 1.022 (1.003-1.030) 12/24/16 13:40 Urine Protein 30 mg/dl mg/dL (Negative) 12/24/16 13:40 Urine Glucose (UA) >=500 mg/dL (Negative) 12/24/16 13:40 Urine Ketones 80 mg/dL (Negative) 12/24/16 13:40 Urine Blood Mod (Negative) 12/24/16 13:40 Urine Nitrite Neg (Negative) 12/24/16 13:40 Urine Bilirubin Neg (Negative) 12/24/16 13:40 Urine Urobilinogen < 2.0 mg/dL (<2.0) 12/24/16 13:40 Ur Leukocyte Esterase Tr (Negative) 12/24/16 13:40 Urine WBC (Auto) 14.0 /HPF (0.0-6.0) H 12/24/16 13:40 Urine RBC (Auto) 7.0 /HPF (0.0-6.0) 12/24/16 13:40 U Epithel Cells (Auto) 1.0 /HPF (0-13.0) 12/24/16 13:40 Urine Mucus Few /HPF 12/24/16 13:40 Ketones 74.4 mg/dL (0.2-2.8) H 12/24/16 13:22
[2016-12-28] MEDS: NOVOLOG SUB-Q SCH ×4 (08:30→22:03)
--- NOTE | 2016-12-28 08:52 | Progress Note ---
Assessment and Plan - Patient Problems (1) Bimalleolar fracture of right ankle Current Visit: Yes Status: Acute Qualifiers: Encounter type: initial encounter Fracture type: closed Open fracture type: O Fracture healing: F Qualified Code(s): S82.841A - Displaced bimalleolar fracture of right lower leg, initial encounter for closed fracture Plan to address problem: Continued elevation, no weightbearing ambulation/walker. Patient may be discharged per medicine with DVT prophylaxis, no weightbearing./ walker. Followup in the office in 2 weeks for removal of splint/tianna, reassessment of wound and application of cast. If she is coming from [facility]SNF , she is to bring with her copies of x-rays of right ankle AP lateral oblique views, then within 48 hours of office visit. Will sign off Subjective Date of service: 12/28/16 Principal diagnosis: Bimalleolar fracture ankle Interval history: Postoperative, no new complaints, Objective Vital signs: Vital Signs - 12hr 12/27/16 12/27/16 12/28/16 21:20 22:58 01:10 Temperature 98.2 F 98.2 F Pulse Rate 92 H Pulse Rate [ 92 H 88 Left Radial] Respiratory 20 20 Rate Blood Pressure 118/59 Blood Pressure 118/59 102/55 [Left Arm] O2 Sat by Pulse 94 96 Oximetry 12/28/16 12/28/16 05:31 07:30 Temperature 97.9 F 98.4 F Pulse Rate Pulse Rate [ 72 77 Left Radial] Respiratory 20 20 Rate Blood Pressure Blood Pressure 108/57 128/75 [Left Arm] O2 Sat by Pulse 98 98 Oximetry - Labs CBC & BMP: 12/27/16 05:24 12/27/16 05:24 Labs: Abnormal lab results 12/27/16 12/27/16 12/27/16 Range/Units 12:07 17:15 21:33 POC Glucose 409 H 364 H 401 H (70-105) 12/28/16 Range/Units 08:25 POC Glucose 122 H (70-105)
[2016-12-28] MEDS: THERAGRAN Tab PO SCH (10:07)
[2016-12-28] MEDS: ASPIRIN PO SCH ×2 (10:07→21:46)
[2016-12-28] MEDS: NORVASC PO SCH (10:07)
[2016-12-28] MEDS: LASIX PO SCH (10:08)
[2016-12-28] MEDS: COLACE PO SCH ×2 (10:08→21:45)
[2016-12-28] MEDS: COREG PO SCH ×2 (10:08→21:48)
--- NOTE | 2016-12-28 11:02 | Discharge Summary ---
Providers - Providers Date of Admission: 12/24/16 22:41 Attending physician: SENDY OSBORN 12/24/16 22:44 Consult to Physician [CONS] Routine Consulting Provider: MAKENNA COLÓN Reason For Exam: Ankle Fracture Place consult to:: Rossana Notified:: office Phone number called:: [phone] Was contact made?: Yes If yes, spoke with:: rachel Time called:: 12:06 12/26/16 20:29 Physical Therapy Evaluation and Treat [CONS] Routine Comment: Reason For Exam: post op ankle fx Weight bearing status?: Nonwt bearing Primary care physician: [employer] Hospitalization Condition: Stable Disposition: STILL A PATIENT - Discharge Diagnoses (1) DKA (diabetic ketoacidoses) Status: Resolved Qualifiers: Diabetes mellitus type: D Diabetes mellitus complication detail: without coma (2) Bimalleolar fracture of right ankle Status: Acute Qualifiers: Encounter type: initial encounter Fracture type: closed Open fracture type: O Fracture healing: F Qualified Code(s): S82.841A - Displaced bimalleolar fracture of right lower leg, initial encounter for closed fracture (3) COPD (chronic obstructive pulmonary disease) Status: Chronic Qualifiers: COPD type: C Chronic bronchitis type: C Emphysema type: E (4) Hyperlipidemia Status: Chronic Qualifiers: Hyperlipidemia type: H (5) Hypertension Status: Chronic Qualifiers: Hypertension type: essential hypertension Qualified Code(s): I10 - Essential (primary) hypertension (6) DVT prophylaxis Status: Acute Exam - Constitutional Vitals: Temp Pulse Resp BP Pulse Ox 98.4 F 81 20 128/75 98 12/28/16 07:30 12/28/16 10:19 12/28/16 07:30 12/28/16 07:30 12/28/16 07:30 Plan Follow up with: ALONDRA OREILLY MD [Primary Care Provider] - 3-5 Days
[2016-12-28] MEDS: TYLENOL PO PRN (21:52)
[2016-12-29] MEDS: COREG PO SCH ×2 (10:06→21:28)
[2016-12-29] MEDS: NORVASC PO SCH (10:07)
[2016-12-29] MEDS: LASIX PO SCH (10:07)
[2016-12-29] MEDS: THERAGRAN Tab PO SCH (10:07)
[2016-12-29] MEDS: ASPIRIN PO SCH ×2 (10:07→21:28)
[2016-12-29] MEDS: TYLENOL PO PRN ×3 (10:15→21:35)
[2016-12-29] MEDS: NOVOLOG SUB-Q SCH ×4 (10:19→22:58)
[2016-12-29] MEDS: COLACE PO SCH ×2 (10:19→22:58)
--- NOTE | 2016-12-29 12:44 | Progress Note ---
Assessment and Plan - Patient Problems (1) DKA (diabetic ketoacidoses) Current Visit: Yes Status: Resolved Qualifiers: Diabetes mellitus type: D Diabetes mellitus complication detail: without coma Plan to address problem: ADA diet, insulin, accu check (2) Bimalleolar fracture of right ankle Current Visit: Yes Status: Acute Qualifiers: Encounter type: initial encounter Fracture type: closed Open fracture type: O Fracture healing: F Qualified Code(s): S82.841A - Displaced bimalleolar fracture of right lower leg, initial encounter for closed fracture Plan to address problem: Ortho consulted, S/P surgical intervention, Postoperative pain, continue pain control. (3) COPD (chronic obstructive pulmonary disease) Current Visit: No Status: Chronic Qualifiers: COPD type: C Chronic bronchitis type: C Emphysema type: E Plan to address problem: supplemental oxygen, nebs, supportive care. (4) Hyperlipidemia Current Visit: No Status: Chronic Qualifiers: Hyperlipidemia type: H Plan to address problem: continue current therapy (5) Hypertension Current Visit: No Status: Chronic Qualifiers: Hypertension type: essential hypertension Qualified Code(s): I10 - Essential (primary) hypertension Plan to address problem: Monitor BP q shift, (6) DVT prophylaxis Current Visit: Yes Status: Acute History Interval history: Pt resting in bed, No reported nursing events. Pt S/P surgical intervention. Pt denies fever, CP,Palpitation, NVD. Pt discharged. Case management consulted. Hospitalist Physical - Constitutional Vitals: Temp Pulse Resp BP Pulse Ox 98.2 F 68 2 L 116/70 99 12/29/16 07:45 12/29/16 10:00 12/29/16 10:15 12/29/16 07:45 12/29/16 10:00 General appearance: Present: no acute distress, obese - EENT Eyes: Present: PERRL, EOM intact ENT: hearing intact - Neck Neck: Present: supple - Respiratory Respiratory effort: normal Respiratory: bilateral: CTA - Cardiovascular Rhythm: regular Heart Sounds: Present: S1 & S2 - Extremities Extremities: no ischemia Peripheral Pulses: within normal limits - Abdominal General gastrointestinal: soft, non-tender, non-distended - Integumentary Integumentary: Present: clear, dry - Psychiatric Psychiatric: appropriate mood/affect, cooperative - Neurologic Neurologic: CNII-XII intact Results - Labs CBC & Chem 7: 12/27/16 05:24 12/27/16 05:24 Labs: Laboratory Last Values WBC 11.1 K/mm3 (4.5-11.0) H 12/24/16 13:22 RBC 3.95 M/mm3 (3.65-5.03) 12/24/16 13:22 Hgb 10.4 gm/dl (10.1-14.3) 12/27/16 05:24 Hct 32.2 % (30.3-42.9) 12/27/16 05:24 MCV 94 fl (79-97) 12/24/16 13:22 MCH 30 pg (28-32) 12/24/16 13:22 MCHC 32 % (30-34) 12/24/16 13:22 RDW 14.2 % (13.2-15.2) 12/24/16 13:22 Plt Count 362 K/mm3 (140-440) 12/24/16 13:22 Lymph % (Auto) 4.4 % (13.4-35.0) L 12/24/16 13:22 [place] % (Auto) 14.1 % (0.0-7.3) H 12/24/16 13:22 Eos % (Auto) 0.1 % (0.0-4.3) 12/24/16 13:22 Baso % (Auto) 0.5 % (0.0-1.8) 12/24/16 13:22 Lymph # 0.5 K/mm3 (1.2-5.4) L 12/24/16 13:22 [place] # 1.6 K/mm3 (0.0-0.8) H 12/24/16 13:22 Eos # 0.0 K/mm3 (0.0-0.4) 12/24/16 13:22 Baso # 0.1 K/mm3 (0.0-0.1) 12/24/16 13:22 Seg Neutrophils % 80.9 % (40.0-70.0) H 12/24/16 13:22 Seg Neutrophils # 9.0 K/mm3 (1.8-7.7) H 12/24/16 13:22 VBG pH 7.317 (7.320-7.420) L 12/24/16 13:22 Sodium 139 mmol/L (137-145) 12/27/16 05:24 Potassium 4.4 mmol/L (3.6-5.0) D 12/27/16 05:24 Chloride 102.2 mmol/L (98-107) 12/27/16 05:24 Carbon Dioxide 21 mmol/L (22-30) L 12/27/16 05:24 Anion Gap 20 mmol/L 12/27/16 05:24 BUN 21 mg/dL (7-17) H 12/27/16 05:24 Creatinine 0.8 mg/dL (0.7-1.2) 12/27/16 05:24 Estimated GFR > 60 ml/min 12/27/16 05:24 BUN/Creatinine Ratio 26.25 % 12/27/16 05:24 Glucose 416 mg/dL (65-100) H 12/27/16 05:24 POC Glucose 335 (70-105) H 12/28/16 21:52 Calcium 7.8 mg/dL (8.4-10.2) L 12/27/16 05:24 Phosphorus 2.4 mg/dL (2.5-4.5) L 12/24/16 14:44 Magnesium 1.7 mg/dL (1.7-2.3) 12/24/16 14:44 Urine Color Straw (Yellow) 12/24/16 13:40 Urine Turbidity Clear (Clear) 12/24/16 13:40 Urine pH 5.0 (5.0-7.0) 12/24/16 13:40 Ur Specific [place] 1.022 (1.003-1.030) 12/24/16 13:40 Urine Protein 30 mg/dl mg/dL (Negative) 12/24/16 13:40 Urine Glucose (UA) >=500 mg/dL (Negative) 12/24/16 13:40 Urine Ketones 80 mg/dL (Negative) 12/24/16 13:40 Urine Blood Mod (Negative) 12/24/16 13:40 Urine Nitrite Neg (Negative) 12/24/16 13:40 Urine Bilirubin Neg (Negative) 12/24/16 13:40 Urine Urobilinogen < 2.0 mg/dL (<2.0) 12/24/16 13:40 Ur Leukocyte Esterase Tr (Negative) 12/24/16 13:40 Urine WBC (Auto) 14.0 /HPF (0.0-6.0) H 12/24/16 13:40 Urine RBC (Auto) 7.0 /HPF (0.0-6.0) 12/24/16 13:40 U Epithel Cells (Auto) 1.0 /HPF (0-13.0) 12/24/16 13:40 Urine Mucus Few /HPF 12/24/16 13:40 Ketones 74.4 mg/dL (0.2-2.8) H 12/24/16 13:22
[2016-12-30] MEDS: PERCOCET 5/325 PO PRN ×2 (08:44→14:14)
[2016-12-30] MEDS: NOVOLOG SUB-Q SCH ×4 (08:46→23:27)
[2016-12-30] MEDS: COREG PO SCH ×2 (09:59→21:28)
[2016-12-30] MEDS: ASPIRIN PO SCH ×2 (09:59→21:27)
[2016-12-30] MEDS: COLACE PO SCH ×3 (09:59→23:28)
[2016-12-30] MEDS: LASIX PO SCH (09:59)
[2016-12-30] MEDS: NORVASC PO SCH (09:59)
[2016-12-30] MEDS: THERAGRAN Tab PO SCH (09:59)
[2016-12-30] MEDS: TYLENOL PO PRN (21:27)
[2016-12-31] MEDS: D50W (25GM) IV PRN (05:31)
[2016-12-31] MEDS: PERCOCET 5/325 PO PRN ×3 (08:14→18:29)
[2016-12-31] MEDS: NOVOLOG SUB-Q SCH ×4 (08:15→22:06)
[2016-12-31] MEDS: ASPIRIN PO SCH ×2 (09:18→22:03)
[2016-12-31] MEDS: THERAGRAN Tab PO SCH (09:18)
[2016-12-31] MEDS: COREG PO SCH ×2 (09:18→22:03)
[2016-12-31] MEDS: NORVASC PO SCH (09:19)
[2016-12-31] MEDS: LASIX PO SCH (09:19)
[2016-12-31] MEDS: COLACE PO SCH ×2 (10:05→22:06)
--- NOTE | 2016-12-31 13:04 | Progress Note ---
Assessment and Plan - Patient Problems (1) DKA (diabetic ketoacidoses) Current Visit: Yes Status: Resolved Qualifiers: Diabetes mellitus type: D Diabetes mellitus complication detail: without coma Plan to address problem: ADA diet, insulin, accu check (2) Bimalleolar fracture of right ankle Current Visit: Yes Status: Acute Qualifiers: Encounter type: initial encounter Fracture type: closed Open fracture type: O Fracture healing: F Qualified Code(s): S82.841A - Displaced bimalleolar fracture of right lower leg, initial encounter for closed fracture Plan to address problem: Ortho consulted, S/P surgical intervention, Postoperative pain, continue pain control. Pt NWB to RLE (3) COPD (chronic obstructive pulmonary disease) Current Visit: No Status: Chronic Qualifiers: COPD type: C Chronic bronchitis type: C Emphysema type: E Plan to address problem: supplemental oxygen, nebs, supportive care. (4) Hyperlipidemia Current Visit: No Status: Chronic Qualifiers: Hyperlipidemia type: H Plan to address problem: continue current therapy (5) Hypertension Current Visit: No Status: Chronic Qualifiers: Hypertension type: essential hypertension Qualified Code(s): I10 - Essential (primary) hypertension Plan to address problem: Monitor BP q shift, (6) DVT prophylaxis Current Visit: Yes Status: Acute History Interval history: Pt resting in bed, No reported nursing events. Pt S/P surgical intervention. Pt denies fever, CP,Palpitation, NVD. Pt discharged. Case management consulted. Hospitalist Physical - Constitutional Vitals: Temp Pulse Resp BP Pulse Ox 98.2 F 95 H 20 129/72 95 12/31/16 09:10 12/31/16 09:18 12/31/16 09:10 12/31/16 09:19 12/31/16 09:10 General appearance: Present: no acute distress, obese - EENT Eyes: Present: PERRL, EOM intact ENT: hearing intact - Neck Neck: Present: supple - Respiratory Respiratory effort: normal Respiratory: bilateral: CTA - Cardiovascular Rhythm: regular Heart Sounds: Present: S1 & S2 - Extremities Extremities: no ischemia, abnormal (NWB to RLE, ) Peripheral Pulses: within normal limits - Abdominal General gastrointestinal: soft, non-tender, non-distended - Integumentary Integumentary: Present: clear, dry - Psychiatric Psychiatric: appropriate mood/affect, cooperative - Neurologic Neurologic: CNII-XII intact Results - Labs CBC & Chem 7: 12/27/16 05:24 12/27/16 05:24 Labs: Laboratory Last Values WBC 11.1 K/mm3 (4.5-11.0) H 12/24/16 13:22 RBC 3.95 M/mm3 (3.65-5.03) 12/24/16 13:22 Hgb 10.4 gm/dl (10.1-14.3) 12/27/16 05:24 Hct 32.2 % (30.3-42.9) 12/27/16 05:24 MCV 94 fl (79-97) 12/24/16 13:22 MCH 30 pg (28-32) 12/24/16 13:22 MCHC 32 % (30-34) 12/24/16 13:22 RDW 14.2 % (13.2-15.2) 12/24/16 13:22 Plt Count 362 K/mm3 (140-440) 12/24/16 13:22 Lymph % (Auto) 4.4 % (13.4-35.0) L 12/24/16 13:22 [place] % (Auto) 14.1 % (0.0-7.3) H 12/24/16 13:22 Eos % (Auto) 0.1 % (0.0-4.3) 12/24/16 13:22 Baso % (Auto) 0.5 % (0.0-1.8) 12/24/16 13:22 Lymph # 0.5 K/mm3 (1.2-5.4) L 12/24/16 13:22 [place] # 1.6 K/mm3 (0.0-0.8) H 12/24/16 13:22 Eos # 0.0 K/mm3 (0.0-0.4) 12/24/16 13:22 Baso # 0.1 K/mm3 (0.0-0.1) 12/24/16 13:22 Seg Neutrophils % 80.9 % (40.0-70.0) H 12/24/16 13:22 Seg Neutrophils # 9.0 K/mm3 (1.8-7.7) H 12/24/16 13:22 VBG pH 7.317 (7.320-7.420) L 12/24/16 13:22 Sodium 139 mmol/L (137-145) 12/27/16 05:24 Potassium 4.4 mmol/L (3.6-5.0) D 12/27/16 05:24 Chloride 102.2 mmol/L (98-107) 12/27/16 05:24 Carbon Dioxide 21 mmol/L (22-30) L 12/27/16 05:24 Anion Gap 20 mmol/L 12/27/16 05:24 BUN 21 mg/dL (7-17) H 12/27/16 05:24 Creatinine 0.8 mg/dL (0.7-1.2) 12/27/16 05:24 Estimated GFR > 60 ml/min 12/27/16 05:24 BUN/Creatinine Ratio 26.25 % 12/27/16 05:24 Glucose 416 mg/dL (65-100) H 12/27/16 05:24 POC Glucose 152 (70-105) H 12/31/16 08:13 Calcium 7.8 mg/dL (8.4-10.2) L 12/27/16 05:24 Phosphorus 2.4 mg/dL (2.5-4.5) L 12/24/16 14:44 Magnesium 1.7 mg/dL (1.7-2.3) 12/24/16 14:44 Urine Color Straw (Yellow) 12/24/16 13:40 Urine Turbidity Clear (Clear) 12/24/16 13:40 Urine pH 5.0 (5.0-7.0) 12/24/16 13:40 Ur Specific [place] 1.022 (1.003-1.030) 12/24/16 13:40 Urine Protein 30 mg/dl mg/dL (Negative) 12/24/16 13:40 Urine Glucose (UA) >=500 mg/dL (Negative) 12/24/16 13:40 Urine Ketones 80 mg/dL (Negative) 12/24/16 13:40 Urine Blood Mod (Negative) 12/24/16 13:40 Urine Nitrite Neg (Negative) 12/24/16 13:40 Urine Bilirubin Neg (Negative) 12/24/16 13:40 Urine Urobilinogen < 2.0 mg/dL (<2.0) 12/24/16 13:40 Ur Leukocyte Esterase Tr (Negative) 12/24/16 13:40 Urine WBC (Auto) 14.0 /HPF (0.0-6.0) H 12/24/16 13:40 Urine RBC (Auto) 7.0 /HPF (0.0-6.0) 12/24/16 13:40 U Epithel Cells (Auto) 1.0 /HPF (0-13.0) 12/24/16 13:40 Urine Mucus Few /HPF 12/24/16 13:40 Ketones 74.4 mg/dL (0.2-2.8) H 12/24/16 13:22
[2016-12-31] MEDS: TYLENOL PO PRN ×2 (16:18→22:03)
--- NOTE | 2017-01-01 02:23 | Progress Note ---
Assessment and Plan - Patient Problems (1) DKA (diabetic ketoacidoses) Current Visit: Yes Status: Resolved Qualifiers: Diabetes mellitus type: D Diabetes mellitus complication detail: without coma Plan to address problem: ADA diet, insulin, accu check (2) Bimalleolar fracture of right ankle Current Visit: Yes Status: Acute Qualifiers: Encounter type: initial encounter Fracture type: closed Open fracture type: O Fracture healing: F Qualified Code(s): S82.841A - Displaced bimalleolar fracture of right lower leg, initial encounter for closed fracture Plan to address problem: Ortho consulted, S/P surgical intervention, Postoperative pain, continue pain control. Pt NWB to RLE (3) COPD (chronic obstructive pulmonary disease) Current Visit: No Status: Chronic Qualifiers: COPD type: C Chronic bronchitis type: C Emphysema type: E Plan to address problem: supplemental oxygen, nebs, supportive care. (4) Hyperlipidemia Current Visit: No Status: Chronic Qualifiers: Hyperlipidemia type: H Plan to address problem: continue current therapy (5) Hypertension Current Visit: No Status: Chronic Qualifiers: Hypertension type: essential hypertension Qualified Code(s): I10 - Essential (primary) hypertension Plan to address problem: Monitor BP q shift, (6) DVT prophylaxis Current Visit: Yes Status: Acute History Interval history: Pt resting in bed, No reported nursing events. Pt S/P surgical intervention. Pt denies fever, CP,Palpitation, NVD. Case management consulted for d/c planning. Pt discharged 12/28. Notified by case management today that patient insurance company denied rehab placement. Peer to Peer requested: [phone]. Left message, awaiting response. Hospitalist Physical - Constitutional Vitals: Temp Pulse Resp BP Pulse Ox 98.7 F 86 20 134/68 96 01/01/17 00:40 01/01/17 00:40 01/01/17 00:40 01/01/17 00:40 01/01/17 00:40 General appearance: Present: no acute distress, obese - EENT Eyes: Present: PERRL, EOM intact ENT: hearing intact - Neck Neck: Present: supple - Respiratory Respiratory effort: normal Respiratory: bilateral: CTA - Cardiovascular Rhythm: regular Heart Sounds: Present: S1 & S2 - Extremities Extremities: no ischemia Peripheral Pulses: within normal limits - Abdominal General gastrointestinal: soft, non-tender, non-distended - Integumentary Integumentary: Present: clear, warm, dry - Psychiatric Psychiatric: appropriate mood/affect, cooperative - Neurologic Neurologic: CNII-XII intact Results - Labs CBC & Chem 7: 12/27/16 05:24 12/27/16 05:24 Labs: Laboratory Last Values WBC 11.1 K/mm3 (4.5-11.0) H 12/24/16 13:22 RBC 3.95 M/mm3 (3.65-5.03) 12/24/16 13:22 Hgb 10.4 gm/dl (10.1-14.3) 12/27/16 05:24 Hct 32.2 % (30.3-42.9) 12/27/16 05:24 MCV 94 fl (79-97) 12/24/16 13:22 MCH 30 pg (28-32) 12/24/16 13:22 MCHC 32 % (30-34) 12/24/16 13:22 RDW 14.2 % (13.2-15.2) 12/24/16 13:22 Plt Count 362 K/mm3 (140-440) 12/24/16 13:22 Lymph % (Auto) 4.4 % (13.4-35.0) L 12/24/16 13:22 [place] % (Auto) 14.1 % (0.0-7.3) H 12/24/16 13:22 Eos % (Auto) 0.1 % (0.0-4.3) 12/24/16 13:22 Baso % (Auto) 0.5 % (0.0-1.8) 12/24/16 13:22 Lymph # 0.5 K/mm3 (1.2-5.4) L 12/24/16 13:22 [place] # 1.6 K/mm3 (0.0-0.8) H 12/24/16 13:22 Eos # 0.0 K/mm3 (0.0-0.4) 12/24/16 13:22 Baso # 0.1 K/mm3 (0.0-0.1) 12/24/16 13:22 Seg Neutrophils % 80.9 % (40.0-70.0) H 12/24/16 13:22 Seg Neutrophils # 9.0 K/mm3 (1.8-7.7) H 12/24/16 13:22 VBG pH 7.317 (7.320-7.420) L 12/24/16 13:22 Sodium 139 mmol/L (137-145) 12/27/16 05:24 Potassium 4.4 mmol/L (3.6-5.0) D 12/27/16 05:24 Chloride 102.2 mmol/L (98-107) 12/27/16 05:24 Carbon Dioxide 21 mmol/L (22-30) L 12/27/16 05:24 Anion Gap 20 mmol/L 12/27/16 05:24 BUN 21 mg/dL (7-17) H 12/27/16 05:24 Creatinine 0.8 mg/dL (0.7-1.2) 12/27/16 05:24 Estimated GFR > 60 ml/min 12/27/16 05:24 BUN/Creatinine Ratio 26.25 % 12/27/16 05:24 Glucose 416 mg/dL (65-100) H 12/27/16 05:24 POC Glucose 183 (70-105) H 12/31/16 21:59 Calcium 7.8 mg/dL (8.4-10.2) L 12/27/16 05:24 Phosphorus 2.4 mg/dL (2.5-4.5) L 12/24/16 14:44 Magnesium 1.7 mg/dL (1.7-2.3) 12/24/16 14:44 Urine Color Straw (Yellow) 12/24/16 13:40 Urine Turbidity Clear (Clear) 12/24/16 13:40 Urine pH 5.0 (5.0-7.0) 12/24/16 13:40 Ur Specific [place] 1.022 (1.003-1.030) 12/24/16 13:40 Urine Protein 30 mg/dl mg/dL (Negative) 12/24/16 13:40 Urine Glucose (UA) >=500 mg/dL (Negative) 12/24/16 13:40 Urine Ketones 80 mg/dL (Negative) 12/24/16 13:40 Urine Blood Mod (Negative) 12/24/16 13:40 Urine Nitrite Neg (Negative) 12/24/16 13:40 Urine Bilirubin Neg (Negative) 12/24/16 13:40 Urine Urobilinogen < 2.0 mg/dL (<2.0) 12/24/16 13:40 Ur Leukocyte Esterase Tr (Negative) 12/24/16 13:40 Urine WBC (Auto) 14.0 /HPF (0.0-6.0) H 12/24/16 13:40 Urine RBC (Auto) 7.0 /HPF (0.0-6.0) 12/24/16 13:40 U Epithel Cells (Auto) 1.0 /HPF (0-13.0) 12/24/16 13:40 Urine Mucus Few /HPF 12/24/16 13:40 Ketones 74.4 mg/dL (0.2-2.8) H 12/24/16 13:22
[2017-01-01] MEDS: NOVOLOG SUB-Q SCH ×4 (08:31→21:43)
[2017-01-01] MEDS: ASPIRIN PO SCH ×2 (09:29→21:41)
[2017-01-01] MEDS: THERAGRAN Tab PO SCH (11:30)
[2017-01-01] MEDS: LASIX PO SCH (11:30)
[2017-01-01] MEDS: COLACE PO SCH ×2 (11:30→21:41)
[2017-01-01] MEDS: NORVASC PO SCH (11:31)
[2017-01-01] MEDS: COREG PO SCH ×2 (11:31→21:41)
--- NOTE | 2017-01-01 14:34 | Progress Note ---
Assessment and Plan Assessment and plan: (1) DKA (diabetic ketoacidoses) Current Visit: Yes Status: Resolved Qualifiers: Diabetes mellitus type: D Diabetes mellitus complication detail: without coma Plan to address problem: Continue ADA diet, insulin, accu check (2) Bimalleolar fracture of right ankle Current Visit: Yes Status: Acute Qualifiers: Encounter type: initial encounter Fracture type: closed Open fracture type: O Fracture healing: F Qualified Code(s): S82.841A - Displaced bimalleolar fracture of right lower leg, initial encounter for closed fracture Plan to address problem: Ortho consulted, S/P surgical intervention, Postoperative pain, continue pain control. PT following, need subacute rehabilitation (3) COPD (chronic obstructive pulmonary disease) Current Visit: No Status: Chronic Qualifiers: COPD type: C Chronic bronchitis type: C Emphysema type: E Plan to address problem: supplemental oxygen, nebs, supportive care. (4) Hyperlipidemia Current Visit: No Status: Chronic Qualifiers: Hyperlipidemia type: H Plan to address problem: continue statin (5) Hypertension Current Visit: No Status: Chronic Qualifiers: Hypertension type: essential hypertension Qualified Code(s): I10 - Essential (primary) hypertension Plan to address problem: Monitor BP q shift, Currently on amlodipine and Coreg and Lasix (6) DVT prophylaxis Current Visit: Yes Status: Acute On Lovenox History Interval history: Patient seen and examined. Medical records and medication list reviewed. Discussed with Case management for d/c planning. Patient's insurance company denied rehab placement. Peer to Peer requested: [phone]. Updated them and medical lab technician supposed to call me tomorrow afternoon. Hospitalist Physical - Physical exam Narrative exam: General appearance: Present: no acute distress, obese - EENT Eyes: Present: PERRL, EOM intact ENT: hearing intact - Neck Neck: Present: supple - Respiratory Respiratory effort: normal Respiratory: bilateral: CTA - Cardiovascular Rhythm: regular Heart Sounds: Present: S1 & S2 - Extremities Extremities: no ischemia Peripheral Pulses: Right leg with surgical dressing - Abdominal General gastrointestinal: soft, non-tender, non-distended - Integumentary Integumentary: Present: clear, warm, dry - Psychiatric Psychiatric: appropriate mood/affect, cooperative - Neurologic Neurologic: CNII-XII intact - Constitutional Vitals: Temp Pulse Resp BP Pulse Ox 98.7 F 92 H 20 153/81 94 03/07/17 08:52 01/01/17 08:52 01/01/17 08:52 01/01/17 08:52 01/01/17 08:52 General appearance: Present: no acute distress, obese Results - Labs CBC & Chem 7: 12/27/16 05:24 12/27/16 05:24 Labs: Laboratory Last Values WBC 11.1 K/mm3 (4.5-11.0) H 12/24/16 13:22 RBC 3.95 M/mm3 (3.65-5.03) 12/24/16 13:22 Hgb 10.4 gm/dl (10.1-14.3) 12/27/16 05:24 Hct 32.2 % (30.3-42.9) 12/27/16 05:24 MCV 94 fl (79-97) 12/24/16 13:22 MCH 30 pg (28-32) 12/24/16 13:22 MCHC 32 % (30-34) 12/24/16 13:22 RDW 14.2 % (13.2-15.2) 12/24/16 13:22 Plt Count 362 K/mm3 (140-440) 12/24/16 13:22 Lymph % (Auto) 4.4 % (13.4-35.0) L 12/24/16 13:22 [place] % (Auto) 14.1 % (0.0-7.3) H 12/24/16 13:22 Eos % (Auto) 0.1 % (0.0-4.3) 12/24/16 13:22 Baso % (Auto) 0.5 % (0.0-1.8) 12/24/16 13:22 Lymph # 0.5 K/mm3 (1.2-5.4) L 12/24/16 13:22 [place] # 1.6 K/mm3 (0.0-0.8) H 12/24/16 13:22 Eos # 0.0 K/mm3 (0.0-0.4) 12/24/16 13:22 Baso # 0.1 K/mm3 (0.0-0.1) 12/24/16 13:22 Seg Neutrophils % 80.9 % (40.0-70.0) H 12/24/16 13:22 Seg Neutrophils # 9.0 K/mm3 (1.8-7.7) H 12/24/16 13:22 VBG pH 7.317 (7.320-7.420) L 12/24/16 13:22 Sodium 139 mmol/L (137-145) 12/27/16 05:24 Potassium 4.4 mmol/L (3.6-5.0) D 12/27/16 05:24 Chloride 102.2 mmol/L (98-107) 12/27/16 05:24 Carbon Dioxide 21 mmol/L (22-30) L 12/27/16 05:24 Anion Gap 20 mmol/L 12/27/16 05:24 BUN 21 mg/dL (7-17) H 12/27/16 05:24 Creatinine 0.8 mg/dL (0.7-1.2) 12/27/16 05:24 Estimated GFR > 60 ml/min 12/27/16 05:24 BUN/Creatinine Ratio 26.25 % 12/27/16 05:24 Glucose 416 mg/dL (65-100) H 12/27/16 05:24 POC Glucose 183 (70-105) H 12/31/16 21:59 Calcium 7.8 mg/dL (8.4-10.2) L 12/27/16 05:24 Phosphorus 2.4 mg/dL (2.5-4.5) L 12/24/16 14:44 Magnesium 1.7 mg/dL (1.7-2.3) 12/24/16 14:44 Urine Color Straw (Yellow) 12/24/16 13:40 Urine Turbidity Clear (Clear) 12/24/16 13:40 Urine pH 5.0 (5.0-7.0) 12/24/16 13:40 Ur Specific [place] 1.022 (1.003-1.030) 12/24/16 13:40 Urine Protein 30 mg/dl mg/dL (Negative) 12/24/16 13:40 Urine Glucose (UA) >=500 mg/dL (Negative) 12/24/16 13:40 Urine Ketones 80 mg/dL (Negative) 12/24/16 13:40 Urine Blood Mod (Negative) 12/24/16 13:40 Urine Nitrite Neg (Negative) 12/24/16 13:40 Urine Bilirubin Neg (Negative) 12/24/16 13:40 Urine Urobilinogen < 2.0 mg/dL (<2.0) 12/24/16 13:40 Ur Leukocyte Esterase Tr (Negative) 12/24/16 13:40 Urine WBC (Auto) 14.0 /HPF (0.0-6.0) H 12/24/16 13:40 Urine RBC (Auto) 7.0 /HPF (0.0-6.0) 12/24/16 13:40 U Epithel Cells (Auto) 1.0 /HPF (0-13.0) 12/24/16 13:40 Urine Mucus Few /HPF 12/24/16 13:40 Ketones 74.4 mg/dL (0.2-2.8) H 12/24/16 13:22
[2017-01-01] MEDS: TYLENOL PO PRN (21:41)
[2017-01-02] MEDS: NOVOLOG SUB-Q SCH ×4 (08:00→22:44)
[2017-01-02] MEDS: COLACE PO SCH ×2 (09:30→21:39)
[2017-01-02] MEDS: PERCOCET 5/325 PO PRN ×2 (09:31→14:37)
[2017-01-02] MEDS: COREG PO SCH ×2 (09:32→21:34)
[2017-01-02] MEDS: THERAGRAN Tab PO SCH (09:32)
[2017-01-02] MEDS: LASIX PO SCH (09:32)
[2017-01-02] MEDS: NORVASC PO SCH (09:32)
[2017-01-02] MEDS: ASPIRIN PO SCH ×2 (09:32→21:34)
--- NOTE | 2017-01-02 17:29 | Progress Note ---
Assessment and Plan Assessment and plan: (1) DKA (diabetic ketoacidoses) Current Visit: Yes Status: Resolved Qualifiers: Diabetes mellitus type: D Diabetes mellitus complication detail: without coma Plan to address problem: Continue ADA diet, insulin, accu check (2) Bimalleolar fracture of right ankle Current Visit: Yes Status: Acute Qualifiers: Encounter type: initial encounter Fracture type: closed Open fracture type: O Fracture healing: F Qualified Code(s): S82.841A - Displaced bimalleolar fracture of right lower leg, initial encounter for closed fracture Plan to address problem: Ortho consulted, S/P surgical intervention, Postoperative pain, continue pain control. PT following, need subacute rehabilitation, waiting for insurance approval (3) COPD (chronic obstructive pulmonary disease) Current Visit: No Status: Chronic Qualifiers: COPD type: C Chronic bronchitis type: C Emphysema type: E Plan to address problem: supplemental oxygen, nebs, supportive care. (4) Hyperlipidemia Current Visit: No Status: Chronic Qualifiers: Hyperlipidemia type: H Plan to address problem: continue statin (5) Hypertension Current Visit: No Status: Chronic Qualifiers: Hypertension type: essential hypertension Qualified Code(s): I10 - Essential (primary) hypertension Plan to address problem: Monitor BP q shift, Currently on amlodipine, Coreg and Lasix (6) DVT prophylaxis Current Visit: Yes Status: Acute On Lovenox History Interval history: Patient seen and examined. Medical records and medication list reviewed. Discussed with Case management for d/c planning. Patient's insurance company denied rehab placement. Peer to Peer requested: [phone]. Updated them and spoke with medical lab technologist of [facility]. Hospitalist Physical - Physical exam Narrative exam: General appearance: Present: no acute distress, obese - EENT Eyes: Present: PERRL, EOM intact ENT: hearing intact - Neck Neck: Present: supple - Respiratory Respiratory effort: normal Respiratory: bilateral: CTA - Cardiovascular Rhythm: regular Heart Sounds: Present: S1 & S2 - Extremities Extremities: no ischemia Peripheral Pulses: Right leg with surgical dressing - Abdominal General gastrointestinal: soft, non-tender, non-distended - Integumentary Integumentary: Present: clear, warm, dry - Psychiatric Psychiatric: appropriate mood/affect, cooperative - Neurologic Neurologic: CNII-XII intact - Constitutional Vitals: Temp Pulse Resp BP Pulse Ox 98.2 F 88 20 121/61 94 03/08/17 08:15 01/02/17 08:15 01/02/17 08:15 01/02/17 08:15 01/02/17 08:15 General appearance: Present: no acute distress, obese Results - Labs CBC & Chem 7: 12/27/16 05:24 12/27/16 05:24 Labs: Laboratory Last Values WBC 11.1 K/mm3 (4.5-11.0) H 12/24/16 13:22 RBC 3.95 M/mm3 (3.65-5.03) 12/24/16 13:22 Hgb 10.4 gm/dl (10.1-14.3) 12/27/16 05:24 Hct 32.2 % (30.3-42.9) 12/27/16 05:24 MCV 94 fl (79-97) 12/24/16 13:22 MCH 30 pg (28-32) 12/24/16 13:22 MCHC 32 % (30-34) 12/24/16 13:22 RDW 14.2 % (13.2-15.2) 12/24/16 13:22 Plt Count 362 K/mm3 (140-440) 12/24/16 13:22 Lymph % (Auto) 4.4 % (13.4-35.0) L 12/24/16 13:22 [place] % (Auto) 14.1 % (0.0-7.3) H 12/24/16 13:22 Eos % (Auto) 0.1 % (0.0-4.3) 12/24/16 13:22 Baso % (Auto) 0.5 % (0.0-1.8) 12/24/16 13:22 Lymph # 0.5 K/mm3 (1.2-5.4) L 12/24/16 13:22 [place] # 1.6 K/mm3 (0.0-0.8) H 12/24/16 13:22 Eos # 0.0 K/mm3 (0.0-0.4) 12/24/16 13:22 Baso # 0.1 K/mm3 (0.0-0.1) 12/24/16 13:22 Seg Neutrophils % 80.9 % (40.0-70.0) H 12/24/16 13:22 Seg Neutrophils # 9.0 K/mm3 (1.8-7.7) H 12/24/16 13:22 VBG pH 7.317 (7.320-7.420) L 12/24/16 13:22 Sodium 139 mmol/L (137-145) 12/27/16 05:24 Potassium 4.4 mmol/L (3.6-5.0) D 12/27/16 05:24 Chloride 102.2 mmol/L (98-107) 12/27/16 05:24 Carbon Dioxide 21 mmol/L (22-30) L 12/27/16 05:24 Anion Gap 20 mmol/L 12/27/16 05:24 BUN 21 mg/dL (7-17) H 12/27/16 05:24 Creatinine 0.8 mg/dL (0.7-1.2) 12/27/16 05:24 Estimated GFR > 60 ml/min 12/27/16 05:24 BUN/Creatinine Ratio 26.25 % 12/27/16 05:24 Glucose 416 mg/dL (65-100) H 12/27/16 05:24 POC Glucose 243 (70-105) H 01/02/17 12:34 Calcium 7.8 mg/dL (8.4-10.2) L 12/27/16 05:24 Phosphorus 2.4 mg/dL (2.5-4.5) L 12/24/16 14:44 Magnesium 1.7 mg/dL (1.7-2.3) 12/24/16 14:44 Urine Color Straw (Yellow) 12/24/16 13:40 Urine Turbidity Clear (Clear) 12/24/16 13:40 Urine pH 5.0 (5.0-7.0) 12/24/16 13:40 Ur Specific [place] 1.022 (1.003-1.030) 12/24/16 13:40 Urine Protein 30 mg/dl mg/dL (Negative) 12/24/16 13:40 Urine Glucose (UA) >=500 mg/dL (Negative) 12/24/16 13:40 Urine Ketones 80 mg/dL (Negative) 12/24/16 13:40 Urine Blood Mod (Negative) 12/24/16 13:40 Urine Nitrite Neg (Negative) 12/24/16 13:40 Urine Bilirubin Neg (Negative) 12/24/16 13:40 Urine Urobilinogen < 2.0 mg/dL (<2.0) 12/24/16 13:40 Ur Leukocyte Esterase Tr (Negative) 12/24/16 13:40 Urine WBC (Auto) 14.0 /HPF (0.0-6.0) H 12/24/16 13:40 Urine RBC (Auto) 7.0 /HPF (0.0-6.0) 12/24/16 13:40 U Epithel Cells (Auto) 1.0 /HPF (0-13.0) 12/24/16 13:40 Urine Mucus Few /HPF 12/24/16 13:40 Ketones 74.4 mg/dL (0.2-2.8) H 12/24/16 13:22
[2017-01-02] MEDS ORDERED: PEPTO BISMOL PO PRN (20:47)
[2017-01-02] MEDS: TYLENOL PO PRN (21:37)
[2017-01-02] MEDS ORDERED: LOVENOX SUB-Q SCH (22:00)
[2017-01-02] MEDS: D50W (25GM) IV PRN (23:00)
[2017-01-03] MEDS: NOVOLOG SUB-Q SCH ×2 (09:05→14:30)
--- NOTE | 2017-01-03 09:49 | Discharge Summary ---
Providers - Providers Date of Admission: 12/24/16 22:41 Date of discharge: 01/03/17 Attending physician: MOLLY PARKER 12/24/16 22:44 Consult to Physician [CONS] Routine Consulting Provider: MAKENNA COLÓN Reason For Exam: Ankle Fracture Place consult to:: Rossana Notified:: office Phone number called:: [phone] Was contact made?: Yes If yes, spoke with:: rachel Time called:: 12:06 12/26/16 20:29 Physical Therapy Evaluation and Treat [CONS] Routine Comment: Reason For Exam: post op ankle fx Weight bearing status?: Nonwt bearing Primary care physician: [employer] Hospitalization Condition: Stable Hospital course: Discharge Diagnosis: (1) DKA (diabetic ketoacidoses) Current Visit: Yes Status: Resolved Qualifiers: Diabetes mellitus type: D Diabetes mellitus complication detail: without coma Plan to address problem: Continue ADA diet, insulin, accu check (2) Bimalleolar fracture of right ankle Current Visit: Yes Status: Acute Qualifiers: Encounter type: initial encounter Fracture type: closed Open fracture type: O Fracture healing: F Qualified Code(s): S82.841A - Displaced bimalleolar fracture of right lower leg, initial encounter for closed fracture Plan to address problem: Ortho consulted, S/P surgical intervention, Postoperative pain, continue pain control. (3) COPD (chronic obstructive pulmonary disease) Current Visit: No Status: Chronic Qualifiers: COPD type: C Chronic bronchitis type: C Emphysema type: E Plan to address problem: supplemental oxygen, nebs, supportive care. (4) Hyperlipidemia Current Visit: No Status: Chronic Qualifiers: Hyperlipidemia type: H Plan to address problem: continue statin (5) Hypertension Current Visit: No Status: Chronic Qualifiers: Hypertension type: essential hypertension Qualified Code(s): I10 - Essential (primary) hypertension Plan to address problem: Monitor BP q shift, Currently on amlodipine, Coreg and Lasix Disposition: DC/TX INPT REHAB FACILITY Time spent for discharge: 32 minutes Core Measure Documentation - Palliative Care Palliative Care/ Comfort Measures: Not Applicable - Core Measures Any of the following diagnoses?: none Exam - Physical Exam Narrative exam: General appearance: Present: no acute distress, obese - EENT Eyes: Present: PERRL, EOM intact ENT: hearing intact - Neck Neck: Present: supple - Respiratory Respiratory effort: normal Respiratory: bilateral: CTA - Cardiovascular Rhythm: regular Heart Sounds: Present: S1 & S2 - Extremities Extremities: no ischemia Peripheral Pulses: Right leg with surgical dressing - Abdominal General gastrointestinal: soft, non-tender, non-distended - Integumentary Integumentary: Present: clear, warm, dry - Psychiatric Psychiatric: appropriate mood/affect, cooperative - Neurologic Neurologic: CNII-XII intact - Constitutional Vitals: Temp Pulse Resp BP Pulse Ox 98.2 F 81 20 130/76 94 01/03/17 05:56 01/03/17 05:56 01/03/17 05:56 01/03/17 05:56 01/03/17 05:56 Plan Activity: advance as tolerated, fall precautions Weight Bearing Status: Non-Weight Bearing Diet: diabetic Follow up with: PRIMARY CARE, [Primary Care Provider] - 3-5 Days Prescriptions: Enoxaparin [Lovenox] 30 mg SQ Q12HR #20 syringe oxyCODONE /ACETAMINOPHEN [Percocet 5/325] 1 tab PO Q6HR PRN #30 tablet PRN Reason: Pain Sennosides/Docusate Sodium [Sennosides-Docusate Sodium Tab] 1 each PO BID #24 tablet
[2017-01-03] MEDS: THERAGRAN Tab PO SCH (09:58)
[2017-01-03] MEDS: NORVASC PO SCH (09:58)
[2017-01-03] MEDS: COREG PO SCH (09:58)
[2017-01-03] MEDS: ASPIRIN PO SCH (09:59)
[2017-01-03] MEDS: LASIX PO SCH (09:59)
[2017-01-03] MEDS: TYLENOL PO PRN (10:02)
[2017-01-03] MEDS ORDERED: FLUARIX QUAD 2016-2017(36 MOS+) IM ONE (12:00)
[2017-01-03 15:47] VITALS: BP 115/59
== END 2017-01-03 15:01 | DRG 492 ==
LOC: ED 10:48 → CC1 22:41 → 4A 12-25 09:45
PROVIDERS: ADMIT Internal Medicine; ATTEND Internal Medicine
PROC: 0SSF04Z Reposition Right Ankle Joint with Internal Fixation Device, Open Approach (ICD-10-PCS; principal; 2016-12-26)
DX: S82.841A Displaced bimalleolar fracture of right lower leg, initial encounter for closed fracture (principal); E13.10 Other specified diabetes mellitus with ketoacidosis without coma; I10 Essential (primary) hypertension; J44.9 Chronic obstructive pulmonary disease, unspecified; E78.5 Hyperlipidemia, unspecified; Z88.2 Allergy status to sulfonamides; Z91.013 Allergy to seafood; Z79.82 Long term (current) use of aspirin; Z87.891 Personal history of nicotine dependence; Z79.4 Long term (current) use of insulin
CPT/HCPCS: 36415; 64450; 71010; 80048; 81001; 82010; 82805; 82962; 83735; 84100; 85014; 85018; 85025; 90686; 93005; 93010; 96361; 96365; 96366; 96375; A9270-GY; C1713; G8978-GP; G8979-GP; J0690; J1100; J1170; J1650; J1815; J2250; J2370; J2405; J2704; J7030